=== PATIENT | female | born 2000 | race Two or more races ===

== ENCOUNTER 2018-11-21 17:49 | Emergency (ER) | payer OTHER ==
[~2018-11-21] VITALS: Ht 162.6 cm; Wt 68.0 kg
[2018-11-21] MEDS ORDERED: SYNTHROID100 MCG (17:57)
[2018-11-21] MEDS ORDERED: PRENATAL 19 CH1 EACH (17:57)
[2018-11-21] MEDS ORDERED: DIALYVITE TABL1 EACH (17:57)
== END 2018-11-21 22:18 | disposition home or self-care (01) ==
LOC: ER 17:49
DX: O21.0 Mild hyperemesis gravidarum (principal); Z34.01 Encounter for supervision of normal first pregnancy, first trimester

== ENCOUNTER 2019-05-27 17:09 | Inpatient (IN) | payer OTHER ==
[~2019-05-27] VITALS: Ht 162.6 cm; Wt 2.7 kg
[~2019-05-27 17:09] MED LIST: DIALYVITE TABL1 EACH; PRENATAL 19 CH1 EACH; SYNTHROID100 MCG
[2019-05-27] MEDS ORDERED: SYNTHROID125 MCG PO (17:49)
== END 2019-05-30 13:33 | disposition home or self-care (01) | DRG 788 ==
LOC: OBS/DEL 17:09 → LDR 17:26 → OB/GYN 17:26 → O/R 17:26 → OB/GYN 22:40
PROVIDERS: ADMIT Obstetrics & Gynecology
PROC: 4A1HXCZ Monitoring of Products of Conception, Cardiac Rate, External Approach (ICD-10-PCS; 2019-05-27)
PROC: 10D00Z1 Extraction of Products of Conception, Low, Open Approach (ICD-10-PCS; principal; 2019-05-27 18:45)
DX: O82 Encounter for cesarean delivery without indication (principal); O76 Abnormality in fetal heart rate and rhythm complicating labor and delivery; Z3A.37 37 weeks gestation of pregnancy; Z37.0 Single live birth

== ENCOUNTER 2019-06-03 09:50 | Emergency (ER) | payer OTHER ==
[~2019-06-03] VITALS: Ht 162.6 cm; Wt 75.3 kg
[~2019-06-03 09:50] MED LIST changes: +SYNTHROID125 MCG PO
== END 2019-06-03 11:00 | disposition home or self-care (01) ==
LOC: ER 09:50
DX: T81.41XA Infection following a procedure, superficial incisional surgical site, initial encounter (principal)